=== PATIENT | female | born 1925 | race Caucasian/White ===

== ENCOUNTER 2017-07-05 23:51 | Inpatient (IN) | payer MEDICARE, OTHER ==
[~2017-07-05] VITALS: Ht 154.9 cm; Wt 77.5 kg
[2017-07-06] VITALS (11 sets, daily range): BP systolic 117–221; BP diastolic 62–123; PULSE 66–87; RESP 14–20; TEMP 95.9–98.1; O2SAT 95–100
[2017-07-06] MEDS ORDERED: traMADol HCL 50 MG TAB PO ONE ×2 (00:30→00:45)
[2017-07-06] MEDS ORDERED: LABETALOL HCL 100 MG/20 ML VIAL IV PUSH ONE (00:30)
[2017-07-06] MEDS ORDERED: HYDROmorphone HCL PF 4 MG/ML VIAL IV PUSH ONE (00:30)
[2017-07-06] MEDS ORDERED: TRAM50TA PO (00:32)
[2017-07-06] MEDS ORDERED: METO50TA PO (00:32)
[2017-07-06] MEDS ORDERED: LEVO.1 PO (00:32)
[2017-07-06] MEDS ORDERED: ONDANSETRON HCL 4 MG/2 ML VIAL IVP PRN (00:45)
[2017-07-06] MEDS ORDERED: SODIUM CHLORIDE 0.9% FLUSH 10 ML FLUSH IV FLUSH PRN (00:45)
[2017-07-06] MEDS ORDERED: ACETAMINOPHEN 325 MG TAB PO PRN (00:45)
[2017-07-06] MEDS ORDERED: NALOXONE HCL 0.4 MG/ML AMP IV PUSH PRN (00:45)
[2017-07-06] MEDS: AMPICILLIN-SULBACTAM INJ 3 GM in SODIUM CHLORIDE 0.9% INJ 100 ML IV SCH ×4 (00:56→20:04)
[2017-07-06] MEDS: PANTOPRAZOLE SODIUM 40 MG VIAL IV PUSH SCH (00:57)
[2017-07-06] MEDS: SODIUM CHLOR 0.9% 1000 ML INJ 1,000 ML IV SCH ×4 (01:40→17:59)
[2017-07-06] MEDS ORDERED: SODIUM CHLORID 0.9% 500 ML INJ 500 ML IV PRN (02:30)
[2017-07-06] MEDS ORDERED: POVIDONE IODINE 5% (ANTISEPSIS KIT) 4 APPLICATIONS EACH NARE PRN ×2 (02:30→16:30)
[2017-07-06] MEDS ORDERED: CHLORHEXIDINE GLUCONATE 2 % 1 PACK (2 CLOTHS) TOPICAL PRN ×2 (02:30→16:30)
--- NOTE | 2017-07-06 02:47 | HHI.HP ---
[facility] [place] Primary [place] Physician Zee James DO Admission Diagnosis Diagnoses: Travel History International Travel<30 Days: No Contact w/Intl Traveler <30 Da: No Traveled to Known Affected Are: No History of Present Illness 89-year-old female with a past medical history significant for atrial fibrillation (not currently on anticoagulation) and hypothyroidism presents to the emergency department status post fall. The patient was on her way back from the bathroom at 8:30 this morning when she suffered a fall into the shower. She reports that she banged the left side of her head on the tile shower, where she remained until 4:00 in the afternoon. She was initially evaluated at [facility] where she was found to have an open globe injury to the left eye. She was transferred at the request of Dr. Choudhary, ophthalmology, for further evaluation and treatment. The patient denies any other injuries although does have bruising in her bilateral upper and lower extremities. She does not have any open wounds. She denies chest pain/ shortness of breath. Denies loss of consciousness associated with the fall. Denies nausea/vomiting/diarrhea. Review of Systems Except as stated in HPI: all other systems reviewed are Neg Past Family Social History Past Medical History Atrial fibrillation (not on anticoagulation) Hypothyroidism Past Surgical History Left femur fracture repair Left hip replacement Thyroidectomy Cholecystectomy Hysterectomy Tonsillectomy Reported Medications Reported Meds & Active Scripts Active Reported Tramadol (Tramadol HCl) 50 Mg Tab 50 Mg PO Q8H PRN Metoprolol Tartrate 50 Mg Tab 50 Mg PO DAILY Synthroid (Levothyroxine Sodium) 100 Mcg Tab 100 Mcg PO DAILY Allergies: Coded Allergies: morphine (Unverified Allergy, Severe, NAUSEA & VOMITING, 12/27/16) codeine (Verified Allergy, Unknown, 07/06/17) Family History Negative for CAD/DM Social History Occasional alcohol. Denies tobacco or illicit drugs. Physical Exam Vital Signs Vital Signs Date Time Temp Pulse Resp B/P (MAP) Pulse Ox O2 Delivery O2 Flow Rate FiO2 07/06/17 00:42 68 20 205/123 (150) 99 Nasal Cannula 07/06/17 00:13 98.1 79 18 221/97 (960) 99 Physical Exam GENERAL: female lying in bed with multiple ecchymoses over bilateral upper and lower extremities SKIN: Cool and dry. HEAD: Atraumatic. Normocephalic. No temporal or scalp tenderness. EYES: Left eye with surrounding ecchymoses and swelling. Left pupil nonreactive. ENT: Nose without bleeding, purulent drainage or septal hematoma. Throat without erythema, tonsillar hypertrophy or exudate. Uvula midline. Airway patent. NECK: Trachea midline. No JVD or lymphadenopathy. Supple, nontender, no meningeal signs. CARDIOVASCULAR: Regular rate and rhythm without murmurs, gallops, or rubs. RESPIRATORY: Clear to auscultation. Breath sounds equal bilaterally. No wheezes , rales, or rhonchi. GASTROINTESTINAL: Abdomen soft, non-tender, nondistended. No hepato-splenomegaly , or palpable masses. No guarding. MUSCULOSKELETAL: Extremities without clubbing, cyanosis, or edema. No joint tenderness, effusion, or edema noted. No calf tenderness. NEUROLOGICAL: Awake and alert. Cranial nerves II through XII intact. Motor and sensory grossly within normal limits. Five out of 5 muscle strength in all muscle groups. Normal speech. Caprini VTE Risk Assessment Caprini VTE Risk Assessment: Mod/High Risk (score >= 2) Caprini Risk Assessment Model Point Value = 1 Point Value = 2 Point Value = 3 Point Value = 5 Age 41-60 Minor surgery BMI > 25 kg/m2 Swollen legs Varicose veins or History of unexplained or recurrent spontaneous Oral contraceptives or hormone replacement Sepsis (< 1 month) Serious lung disease, including pneumonia (< 1 month) Abnormal pulmonary function Acute myocardial infarction Congestive heart failure (< 1 month) History of inflammatory bowel disease Medical patient at bed rest Age 61-74 Arthroscopic surgery Major open surgery (> 45 min) Laparoscopic surgery (> 45 min) Malignancy Confined to bed (> 72 hours) Immobilizing plaster cast Central venous access Age >= 75 History of VTE Family history of VTE Factor V Leiden Prothrombin [id number] Lupus anticoagulant Anticardiolipin antibodies Elevated serum homocysteine Heparin-induced thrombocytopenia Other congenital or acquired thrombophilia Stroke (< 1 month) Elective arthroplasty Hip, pelvis, or leg fracture Acute spinal cord injury (< 1 month) Prophylaxis Regimen Total Risk Factor Score Risk Level Prophylaxis Regimen 0-1 Low Early ambulation 2 Moderate Order ONE of the following: *Sequential Compression Device (SCD) *Heparin 5000 units SQ BID 3-4 Higher Order ONE of the following medications: *Heparin 5000 units SQ TID *Enoxaparin/Lovenox 40 mg SQ daily (WT < 150 kg, CrCl > 30 mL/min) *Enoxaparin/Lovenox 30 mg SQ daily (WT < 150 kg, CrCl > 10-29 mL/min) *Enoxaparin/Lovenox 30 mg SQ BID (WT < 150 kg, CrCl > 30 mL/min) AND/OR *Sequential Compression Device (SCD) 5 or more Highest Order ONE of the following medications: *Heparin 5000 units SQ TID (Preferred with Epidurals) *Enoxaparin/Lovenox 40 mg SQ daily (WT < 150 kg, CrCl > 30 mL/min) *Enoxaparin/Lovenox 30 mg SQ daily (WT < 150 kg, CrCl > 10-29 mL/min) *Enoxaparin/Lovenox 30 mg SQ BID (WT < 150 kg, CrCl > 30 mL/min) AND *Sequential Compression Device (SCD) Assessment and Plan Assessment and Plan Assessment/plan: 1. Open globe injury to the left eye Ophthalmology consulted, plan for operative intervention Patient unable to take any narcotics except tramadol, tramadol for pain Nothing by mouth 2. Rhabdomyolysis Total creatinine kinase 06/20/06 IV fluid hydration Creatinine 0.69 Monitor renal function 3. Atrial fibrillation Continue home metoprolol 4. Hypothyroidism Continue home Synthroid FEN Nothing by mouth NS at 150 cc/hour Electrolytes: Monitor and replete when necessary Holding pharmacologic anticoagulation in anticipation of operative intervention Physician Certification 2 Midnight Certification Type: Admission for Inpatient Services Order for Inpatient Services The services are ordered in accordance with Medicare regulations or non- Medicare payer requirements, as applicable. In the case of services not specified as inpatient-only, they are appropriately provided as inpatient services in accordance with the 2-midnight benchmark. Estimated LOS (days): 2 2 days is the estimated time the patient will need to remain in the hospital, assuming treatment plan goals are met and no additional complications. Post-Hospital Plan: Not yet determined Zuleika Contreras MD Jul 06, 2017 02:47
[2017-07-06] MEDS: LEVOTHYROXINE SODIUM 100 MCG TAB PO SCH (06:26)
--- NOTE | 2017-07-06 08:46 | PD.CONS ---
History of Present Illness Service Ophthalmology Consult Requested By Reason for Consult ruptured globe left eye Primary Care Physician Zee James DO Diagnoses: History of Present Illness 89 yo F with a h/o AFib and hypothyroidism transferred from [facility]. The patient was on her way back from the bathroom at 8:30 yesterday morning when she suffered a fall into the shower. She reports that she banged the left side of her head on the tile shower, where she remained until 4:00 in the afternoon. She was evaluated at [facility] by Dr. Eduar Ye (ethylene compressor operator) where she was found to have a left orbital fracture and possible open globe injury to the left eye. She was transferred here for further evaluation and treatment. Patient states she is comfortable, but does have loss of vision in her left eye. She has an ocular history of cataract surgery in both eyes, and glaucoma surgery in her left eye. Past Family Social History Allergies: Coded Allergies: morphine (Unverified Allergy, Severe, NAUSEA & VOMITING, 12/27/16) codeine (Verified Allergy, Unknown, 07/06/17) Physical Exam Vital Signs Vital Signs Date Time Temp Pulse Resp B/P (MAP) Pulse Ox O2 Delivery O2 Flow Rate FiO2 07/06/17 06:26 71 16 166/70 (102) 97 Nasal Cannula 2.00 07/06/17 04:35 66 16 170/75 (106) 98 Nasal Cannula 2.00 07/06/17 02:00 70 18 140/75 (96) 98 Nasal Cannula 2.00 07/06/17 01:00 75 18 133/62 (85) 99 Nasal Cannula 2.00 07/06/17 00:42 68 20 205/123 (150) 99 Nasal Cannula 07/06/17 00:13 98.1 79 18 221/97 (138) 99 Physical Exam Va cc at near OD 20/20, OS LP EOM full OU, no diplopia CVF full OD, unable OS Pupils 2-1 OD, unable OS IOP deferred Anterior exam OD - normal eyelid, C/S W&Q, K clear, AC deep, pupil round, PCIOL OS - normal eyelid, conj injection, 8 ball hyphema, shallow AC, trab superior with herniation of uveal tissue Laboratory Laboratory Tests Test 07/06/17 04:47 Total Creatine Kinase 2305 Creatine Kinase MB 29.0 Creatine Kinase MB % 1.3 Assessment and Plan Problem List: (1) 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 NPO. IV Vanc/Ancef - has been open for 24+ hours. Scheduled for OR at 4pm. Tatiana Choudhary MD Jul 06, 2017 08:46
[2017-07-06] MEDS: SODIUM CHLORIDE 0.9% FLUSH 10 ML FLUSH IV FLUSH SCH ×2 (08:59→20:05)
[2017-07-06] MEDS: METOPROLOL TARTRATE 50 MG TAB PO SCH (09:26)
[2017-07-06] MEDS: traMADol HCL 50 MG TAB PO PRN (10:30)
[2017-07-06] MEDS ORDERED: PROPOFOL 200 MG/20 ML AMP IV ONE (12:00)
[2017-07-06] MEDS ORDERED: ceFAZolin INJ 1,000 MG VIAL IV ONE ×2 (12:00→16:58)
[2017-07-06] MEDS ORDERED: DEXAMETHASONE SOD PHOS 4 MG/ML VIAL IV ONE (12:00)
[2017-07-06] MEDS ORDERED: ONDANSETRON HCL 4 MG/2 ML VIAL IV ONE (12:00)
[2017-07-06] MEDS ORDERED: PHENYLEPH/NS 1000 MCG/10 ML SYR IV ONE (12:00)
[2017-07-06] MEDS ORDERED: LIDOCAINE HCL 1% PF 5 ML SYRINGE OTHER ONE (12:00)
[2017-07-06] MEDS ORDERED: LACTATED RINGER'S 1000 ML INJ 1,000 ML IV ONE (12:00)
[2017-07-06] MEDS ORDERED: ROCURONIUM INJ 50 MG/5 ML SYRINGE IV PUSH ONE (12:00)
[2017-07-06] MEDS ORDERED: BALANCED SALT SOLN OPHT IRRIG 15 ML BTL ONE (15:18)
[2017-07-06] MEDS ORDERED: methylPREDNISolone SOD SUCC 40 MG/1 ML VIAL ONE (15:24)
[2017-07-06] MEDS ORDERED: GENTAMICIN SULFATE 80 MG/2 ML VIAL ONE (15:25)
[2017-07-06] MEDS ORDERED: VANCOMYCIN 500 MG VIAL ONE (15:25)
[2017-07-06] MEDS ORDERED: ACETAMINOPHEN 1000 MG/100 ML 100 ML IV ONE (15:36)
[2017-07-06] MEDS ORDERED: INSULIN HUMAN REGULAR 1,000 UNITS/10 ML VIAL SQ PRN (16:30)
[2017-07-06] MEDS ORDERED: METOPROLOL TARTRATE 25 MG TAB PO PRN (16:30)
[2017-07-06] MEDS ORDERED: SODIUM CHLORID 0.9% 500 ML IV PRN (16:30)
[2017-07-06] MEDS ORDERED: LACTATED RINGER'S 1000 ML IV PRN (16:30)
[2017-07-06] MEDS ORDERED: TOBRAMYCIN/DEXAMETHASONE OPTH OINT 3.5 GM TUBE ONE (17:05)
[2017-07-06] MEDS ORDERED: SUGAMMADEX SODIUM 200 MG/2 ML VIAL IV PUSH ONE (17:27)
[2017-07-06] MEDS ORDERED: *ENALAPRILAT 1.25 MG/ML VIAL PERIprocedural Use ONLY ONE (18:04)
--- NOTE | 2017-07-06 18:14 | PD.OP ---
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 She was prepped and draped in the usual sterile fashion for ophthalmic surgery. A wire lid speculum was placed in the left eye. A conjunctival peritomy was performed superiorly and a 6mm scleral rupture was found with prolapsed uveal tissue. The prolapsed tissue was placed back into the eye. 7-0 Vicryl sutures were placed to close the rupture. Ocucoat was placed in the eye to reform it and the incision was found to be watertight. The conjunctiva was closed with 7-0 Vicryl. Subconjunctival Gentamycin and Decadron were injected. Tobradex ointment , a patch, and shield were placed on the left eye. The patient was sent to PACU in stable condition. Tatiana Choudhary MD Jul 06, 2017 18:14
[2017-07-06] MEDS ORDERED: DO NOT ADM ANY ANTICOAGULANT DRUGS PRN (18:45)
--- NOTE | 2017-07-06 19:55 | EKG ---
Date Performed: 07/06/2017 Time Performed: 03:03:00 PTAGE: 89 years EKG: ATRIAL FIBRILLATION MARKED LEFT AXIS DEVIATION RIGHT BUNDLE BRANCH BLOCK When compared to p revious tracing, patient is now in atrial Fibrillation. ABNORMAL ECG PREVIOUS TRACING : 08/04/2004 11.00 DOCTOR: Natalie Yee Interpretating Date/Time 07/06/2017 19:54:15
[2017-07-07] VITALS (9 sets, daily range): BP systolic 127–173; BP diastolic 59–86; PULSE 61–86; RESP 15–19; TEMP 95.6–97.6; O2SAT 94–97
[2017-07-07] MEDS: PANTOPRAZOLE SODIUM 40 MG VIAL IV PUSH SCH (00:27)
[2017-07-07] MEDS: SODIUM CHLOR 0.9% 1000 ML INJ 1,000 ML IV SCH ×4 (00:27→22:40)
[2017-07-07] MEDS: AMPICILLIN-SULBACTAM INJ 3 GM in SODIUM CHLORIDE 0.9% INJ 100 ML IV SCH ×4 (00:27→19:29)
[2017-07-07] MEDS: traMADol HCL 50 MG TAB PO PRN ×2 (00:28→12:05)
[2017-07-07] MEDS: LEVOTHYROXINE SODIUM 100 MCG TAB PO SCH (05:17)
[2017-07-07 06:11] LABS: AUTOMATED NEUTROPHIL # 7.2 TH/MM3 (1.8-7.7); BASOPHIL % 0.1 % (0.0-2.0); HEMATOCRIT 36.9 % (35.0-46.0); HEMOGLOBIN 12.8 GM/DL (11.6-15.3); LYMPH % 9.7 % (9.0-44.0); LYMPHOCYTE # 0.8 TH/MM3 (1.0-4.8); MEAN CELL VOLUME 92.3 FL (80.0-100.0); MEAN CORPUSCULAR HGB CONC 34.7 % (32.0-36.0); MEAN PLATELET VOLUME 8.8 FL (7.0-11.0); MONO % 2.1 % (0.0-8.0); MONOCYTE # 0.2 TH/MM3 (0-0.9); NEUT % 88.1 % (16.0-70.0); PLATELET COUNT 198 TH/MM3 (150-450); RED BLOOD COUNT 3.99 MIL/MM3 (4.00-5.30); RED CELL DISTRIBUTION WIDTH 14.7 % (11.6-17.2); WHITE BLOOD COUNT 8.1 TH/MM3 (4.0-11.0)
[2017-07-07] MEDS: SODIUM CHLORIDE 0.9% FLUSH 10 ML FLUSH IV FLUSH SCH (09:00)
[2017-07-07] MEDS: METOPROLOL TARTRATE 50 MG TAB PO SCH (09:52)
[2017-07-07 12:03] LABS: ALBUMIN 2.6 GM/DL (3.4-5.0); ALT (GPT) 32 U/L (10-53); AST (GOT) 78 U/L (15-37); BICARBONATE 22.5 MEQ/L (21.0-32.0); BLOOD UREA NITROGEN 20 MG/DL (7-18); CALCIUM 7.7 MG/DL (8.5-10.1); CHLORIDE 109 MEQ/L (98-107); GLOMERULAR FILTRATION RATE 79 ML/MIN (>89); GLUCOSE,RANDOM 110 MG/DL (74-106); SODIUM (NA) 140 MEQ/L (136-145)
[2017-07-07 12:16] LABS: ALKALINE PHOSPHATASE 72 U/L (45-117); TOTAL BILIRUBIN ADULT 0.5 MG/DL (0.2-1.0); TOTAL PROTEIN 6.5 GM/DL (6.4-8.2)
--- NOTE | 2017-07-07 12:21 | HHI.PR ---
Subjective Remarks 1 day s/p ruptured globe repair OS. Pt states she has mild scratchiness under her eye patch, but no pain overnight. Objective Vital Signs Date Time Temp Pulse Resp B/P (MAP) Pulse Ox O2 Delivery O2 Flow Rate FiO2 07/07/17 11:27 95.6 70 19 149/71 (97) 97 07/07/17 10:26 97 07/07/17 07:48 95.9 85 19 154/86 (108) 97 07/07/17 04:00 96.1 86 15 151/78 (102) 95 07/07/17 00:00 97.6 78 15 173/86 (115) 96 07/06/17 20:00 95.9 66 14 117/68 (84) 100 07/06/17 19:03 95 21 07/06/17 18:53 Room Air 07/06/17 18:15 73 20 177/73 (107) 95 Room Air 07/06/17 18:00 74 20 191/84 (119) 100 Nasal Cannula 2 07/06/17 17:52 74 20 178/77 (110) 100 Nasal Cannula 2 07/06/17 17:50 98.2 74 20 193/89 (123) 100 Nasal Cannula 2 I/O 07/06/17 07/06/17 07/06/17 07/07/17 07/07/17 07/07/17 07:00 15:00 23:00 07:00 15:00 23:00 Intake Total 100 ml 1100 ml 900 ml 1610 ml Output Total 1200 ml Balance 100 ml 1100 ml -300 ml 1610 ml Intake Oral 400 ml IV Total 100 ml 1100 ml 500 ml 1610 ml Output Urine Total 1200 ml Estimated Blood Loss 0 ml # Voids 1 1 # Bowel Movements 1 Result Diagram: 07/07/17 0515 07/07/17 1055 Objective Remarks Va cc at near OD 20/40, OS LP EOM full OU, no diplopia CVF full OD, unable OS Pupils 2-1 OD, no view OS IOP 19mm OS Anterior exam OD - normal eyelid, C/S W&Q, K clear, AC deep, pupil round, lens clear OS - eyelid ecchymoses, conj injection sutures intact, K clear, AC deep, hyphema , no view of lens Assessment and Plan Problem List: (1) 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 IV Vanc/Ancef. Eye shield removed today. Ok to be discharged from Ophthalmology standpoint. Discharge on Augmentin 875 BID x 7 days, Vigamox eyedrops 1 drop QID OS, Prednisolone eyedrops 1% 1 drop QID OS. Follow up next week as outpatient - call to make appt ([phone]). Tatiana Choudhary MD Jul 07, 2017 12:21
[2017-07-07] MEDS: MOXIFLOXACIN 0.5% OPHT SOLN 3 ML BTL LEFT EYE SCH ×3 (14:18→22:39)
[2017-07-07] MEDS: prednisoLONE ACETATE 1% OPHT SUSP 5 ML BTL LEFT EYE SCH ×3 (14:20→22:39)
--- NOTE | 2017-07-07 15:16 | RADRPT ---
EXAM DATE/TIME: 07/07/2017 13:42 [facility] COMPARISON: No previous studies available for comparison. INDICATIONS : Pain. Fall. MEDICAL HISTORY : None. SURGICAL HISTORY : None. ENCOUNTER: Initial ACUITY: 2 days PAIN SCORE: 10/10 LOCATION: Left Hand. FINDINGS: There is mild arthritic change of the hand and the wrist, most significantly involving the distal int erphalangeal joints. Mineralization is normal. There is no evidence of fracture, dislocation or bony destruction. CONCLUSION: Mild arthritic changes. No acute bony injury. Mook Hamilton MD on July 07, 2017 at 15:13 Board Certified Radiologist. This report was verified electronically.
--- NOTE | 2017-07-07 15:18 | RADRPT ---
EXAM DATE/TIME: 07/07/2017 13:46 [facility] COMPARISON: No previous studies available for comparison. INDICATIONS : Pain. Fall. MEDICAL HISTORY : None. SURGICAL HISTORY : None. ENCOUNTER: Initial ACUITY: 2 days PAIN SCORE: 10/10 LOCATION: Right Hand FINDINGS: Moderately prominent degenerative changes are present, distal predominant. There is no evidence of fr acture or dislocation. CONCLUSION: Degenerative changes. No acute bony injury Mook Hamilton MD on July 07, 2017 at 15:14 Board Certified Radiologist. This report was verified electronically.
--- NOTE | 2017-07-07 15:55 | PD.WCN.NOT ---
Wound Consult Description: Received consult for evaluation of pressure ulcer of R toe MTP. R MTP, pressure ulcer from lying on floor at home from Doctor Joshua. Communicated with: RN Mamie workman and Doctor Joshua Recommendation: 1.Please leave all resolving scabs and abrasions open to air. May apply skin prep to resolving abrasion to R medial metatarsal head BID and PRN and leave open to air. 2.Please float bilateral heels off mattress 3. Encourage patient to turn self in bed to offload pressure from buttock area. Additional Information: Patient seen on [facility] for evaluation of pressure ulcer to R toe MTP pressure ulcer from lying on floor at home. Patient is laying in bed with her two daughters at the bedside. Patient noted with diffuse generalized bruising and scabs. Patient states," I fell at home." Assessed patient's bilateral feet patient noted with abrasion to R medial metatarsal head that measures ~2cm x ~ 2cm. Wound is dry and and noted with partial scab. Applied skin prep to R medial metatarsal head abrasion and left open to air. Patient has prominent gavin prominence on R foot. Heels were floated on two pillows. Stephanie Dior [facility] Jul 07, 2017 15:55
--- NOTE | 2017-07-07 23:59 | HHI.PR ---
Subjective Remarks from yesterday: Objective Vital Signs Date Time Temp Pulse Resp B/P (MAP) Pulse Ox O2 Delivery O2 Flow Rate FiO2 07/07/17 19:08 Room Air 07/07/17 17:47 94 21 07/07/17 15:38 95.9 61 19 140/59 (86) 94 07/07/17 11:27 95.6 70 19 149/71 (97) 97 07/07/17 10:26 97 07/07/17 07:52 77 07/07/17 07:48 95.9 85 19 154/86 (108) 97 07/07/17 04:00 96.1 86 15 151/78 (102) 95 07/07/17 00:00 97.6 78 15 173/86 (115) 96 I/O 07/07/17 07/07/17 07/07/17 07/08/17 07/08/17 07/08/17 07:00 15:00 23:00 07:00 15:00 23:00 Intake Total 1610 ml 400 ml Balance 1610 ml 400 ml Intake Oral 400 ml IV Total 1610 ml # Voids 1 4 3 # Bowel Movements 1 1 Result Diagram: 07/07/17 0515 07/07/17 1055 Dmitri Lewis MD Jul 07, 2017 23:59
[2017-07-08 00:05] VITALS: BP 157/76; PULSE 68; RESP 17; TEMP 96.9; O2SAT 100
[2017-07-08] MEDS: PANTOPRAZOLE SODIUM 40 MG VIAL IV PUSH SCH (00:10)
[2017-07-08] MEDS: traMADol HCL 50 MG TAB PO PRN (00:10)
[2017-07-08] MEDS: AMPICILLIN-SULBACTAM INJ 3 GM in SODIUM CHLORIDE 0.9% INJ 100 ML IV SCH ×2 (00:10→06:26)
--- NOTE | 2017-07-08 02:28 | HHI.PR ---
Subjective Remarks Patient seen this morning around 10 AM. She reports pain is under control. Denies any chest pain or shortness of breath. She says she feels like going home, however has some difficulty getting around. She adamantly denies that fall was anything other than a mechanical fall. She reports regarding bilateral hands during fall. Objective Vital Signs Date Time Temp Pulse Resp B/P (MAP) Pulse Ox O2 Delivery O2 Flow Rate FiO2 07/08/17 00:05 96.9 68 17 157/76 (103) 100 07/07/17 20:10 96.8 70 18 127/66 (86) 97 07/07/17 19:08 Room Air 07/07/17 17:47 94 21 07/07/17 15:38 95.9 61 19 140/59 (86) 94 07/07/17 11:27 95.6 70 19 149/71 (97) 97 07/07/17 10:26 97 07/07/17 07:52 77 07/07/17 07:48 95.9 85 19 154/86 (108) 97 07/07/17 04:00 96.1 86 15 151/78 (102) 95 I/O 07/07/17 07/07/17 07/07/17 07/08/17 07/08/17 07/08/17 07:00 15:00 23:00 07:00 15:00 23:00 Intake Total 1610 ml 400 ml 240 ml Balance 1610 ml 400 ml 240 ml Intake Oral 400 ml 240 ml IV Total 1610 ml # Voids 1 4 4 # Bowel Movements 1 1 0 Result Diagram: 07/07/17 0515 07/07/17 1055 Objective Remarks GENERAL: patient lying in bed. Appears comfortable. Left globe status post surgery SKIN: Warm and dry. HEAD: Normocephalic. EYES: No scleral icterus. No injection or drainage. NECK: Supple, trachea midline. No JVD or lymphadenopathy. CARDIOVASCULAR: Regular rate and rhythm without murmurs, gallops, or rubs. RESPIRATORY: Breath sounds equal bilaterally. No accessory muscle use. GASTROINTESTINAL: Abdomen soft, non-tender, nondistended. MUSCULOSKELETAL: No cyanosis, or edema. BACK: Nontender without obvious deformity. No CVA tenderness. A/P Assessment and Plan //Open globe injury to the left eye Ophthalmology consulted, plan for operative intervention Patient unable to take any narcotics except tramadol, tramadol for pain Nothing by mouth = Patient cleared for discharge by ophthalmology. Still weak and with rhabdomyolysis. //Rhabdomyolysis Total creatinine kinase 2226 IV fluid hydration Creatinine 0.69 Monitor renal function = 07/07 creatinine improving 1118. Continue IV fluids. Continue to monitor. //Atrial fibrillation Continue home metoprolol //Hypothyroidism Continue home Synthroid //Bilateral hand pain following fall. Bilateral hand x-rays with chronic osteoarthritic changes. Likely pain is from gilling phenomenon from this.. FEN Nothing by mouth NS at 75 cc/hour Electrolytes: Monitor and replete when necessary Holding pharmacologic anticoagulation in anticipation of operative intervention Discharge Planning . Cleared by ophthalmology. We'll need improvedcreatine kinase Dmitri Lewis MD Jul 08, 2017 02:28
[2017-07-08 03:40] VITALS: BP 148/69; PULSE 78; RESP 18; TEMP 96.8; O2SAT 96
[2017-07-08] MEDS: LEVOTHYROXINE SODIUM 100 MCG TAB PO SCH (06:25)
[2017-07-08] MEDS: SODIUM CHLORIDE 0.9% FLUSH 10 ML FLUSH IV FLUSH SCH ×2 (06:25→09:00)
[2017-07-08] MEDS: SODIUM CHLOR 0.9% 1000 ML INJ 1,000 ML IV SCH (06:28)
[2017-07-08 07:07] LABS: AUTOMATED NEUTROPHIL # 9.2 TH/MM3 (1.8-7.7); BASOPHIL % 0.1 % (0.0-2.0); EOSINOPHIL % 0.1 % (0.0-4.0); HEMATOCRIT 36.1 % (35.0-46.0); HEMOGLOBIN 12.2 GM/DL (11.6-15.3); LYMPH % 11.5 % (9.0-44.0); LYMPHOCYTE # 1.3 TH/MM3 (1.0-4.8); MEAN CORPUSCULAR HEMOGLOBIN 31.4 PG (27.0-34.0); MEAN CORPUSCULAR HGB CONC 33.8 % (32.0-36.0); MEAN PLATELET VOLUME 8.8 FL (7.0-11.0); MONO % 7.7 % (0.0-8.0); MONOCYTE # 0.9 TH/MM3 (0-0.9); NEUT % 80.6 % (16.0-70.0); PLATELET COUNT 213 TH/MM3 (150-450); RED BLOOD COUNT 3.88 MIL/MM3 (4.00-5.30); RED CELL DISTRIBUTION WIDTH 14.9 % (11.6-17.2); WHITE BLOOD COUNT 11.4 TH/MM3 (4.0-11.0)
[2017-07-08 07:25] LABS: BICARBONATE 25.7 MEQ/L (21.0-32.0); CALCIUM 7.8 MG/DL (8.5-10.1); CREATININE 0.78 MG/DL (0.50-1.00)
[2017-07-08] MEDS ORDERED: WALKER WHEELS/F1 MIS (07:51)
[2017-07-08 08:00] VITALS: BP 128/71; PULSE 94; RESP 18; TEMP 97.2; O2SAT 97
--- NOTE | 2017-07-08 08:12 | HHI.PR ---
Subjective Remarks wake and alert no complains of body or muscle aches no headaches ambulating - slightly tentative Objective Vitals Vital Signs Date Time Temp Pulse Resp B/P (MAP) Pulse Ox O2 Delivery O2 Flow Rate FiO2 07/08/17 03:40 96.8 78 18 148/69 (95) 96 07/08/17 00:05 96.9 68 17 157/76 (103) 100 07/07/17 20:10 96.8 70 18 127/66 (86) 97 07/07/17 19:08 Room Air 07/07/17 17:47 94 21 07/07/17 15:38 95.9 61 19 140/59 (86) 94 07/07/17 11:27 95.6 70 19 149/71 (97) 97 07/07/17 10:26 97 I/O 07/07/17 07/07/17 07/07/17 07/08/17 07/08/17 07/08/17 07:00 15:00 23:00 07:00 15:00 23:00 Intake Total 1610 ml 400 ml 240 ml 340 ml Balance 1610 ml 400 ml 240 ml 340 ml Intake Oral 400 ml 240 ml 240 ml IV Total 1610 ml 100 ml # Voids 1 4 4 2 # Bowel Movements 1 1 0 1 Result Diagram: 07/08/17 0525 07/08/17 0525 Imaging Last Impressions Hand X-Ray 07/07/17 0000 Signed Impressions: Service Date/Time: Friday, July 07, 2017 13:42 - CONCLUSION: Mild arthritic changes. No acute bony injury. Mook Hamilton MD Objective Remarks awake and alert, oriented x 3 anicteric left periorbital mild swelling and ecchymoses, injected left conjunctivae left eye vision- see some outlines, blurry, lens not visualized right pupil reactive, grossly clear (history of glaucoma on this eye) no nuchal rigidity lungs clear irregular rhythm abdomen soft, nontender both UE- good range of motion, wrists full, range of motion, good buncher operator, good pusles LE no edema, good range of motion, dry abrasion, good peripheral pulses Procedures s/p repair of left ruptured eye globe A/P Assessment and Plan 89 years old female //Open globe injury to the left eye S/P repair of ruptured globe left eye - tramadol prn for pain - continue eye drops- vigamox + Prenisolone -augmentin 875 mg po bid - PT //Rhabdomyolysis - CK trending down markedly - non oliguric- good urine output - encourage po fluids - PT //Atrial fibrillation- rate controlled Continue home metoprolol //Hypothyroidism Continue home Synthroid //Bilateral hand pain following fall. Bilateral hand x-rays with chronic osteoarthritic changes. - good range of motion - PT HOme today - patient prefers to go home with home PT - lives with daughter OP ff up with PCP- Monday with repeat CK OP ff up with - Opthalmology - Dr. Choudhary in 1 week CM consult for home PT and DME needs arrangements discuss with her caution with ambulation, specially with steps, no driving Angelia Swann MD Jul 08, 2017 08:12
[2017-07-08] MEDS ORDERED: AMOX875T2 PO (08:17)
[2017-07-08] MEDS ORDERED: PRED1SUS6 LEFT EYE (08:17)
[2017-07-08] MEDS ORDERED: VIGA0.5D LEFT EYE (08:17)
--- NOTE | 2017-07-08 08:23 | HHI.DS ---
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 The patient was on her way back from the bathroom at 8:30 this morning when she suffered a fall into the shower. She reports that she banged the left side of her head on the tile shower, where she remained until 4:00 in the afternoon. She was initially evaluated at [facility] where she was found to have an open globe injury to the left eye. She was transferred at the request of Dr. Choudhary, ophthalmology, for further evaluation and treatment. The patient denies any other injuries although does have bruising in her bilateral upper and lower extremities. She does not have any open wounds. She denies chest pain/ shortness of breath. Denies loss of consciousness associated with the fall. Denies nausea/vomiting/diarrhea. CBC/BMP: 07/08/17 0525 07/08/17 0525 Significant Findings Laboratory Tests Test 07/06/17 04:47 07/06/17 10:26 07/07/17 05:15 07/07/17 10:55 Total Creatine Kinase 2305 U/L (26-192) 2226 U/L (26-192) 1118 U/L (26-192) Creatine Kinase MB 29.0 NG/ML (0.5-3.6) 26.3 NG/ML (0.5-3.6) 8.2 NG/ML (0.5-3.6) Red Blood Count 3.99 MIL/MM3 (4.00-5.30) Neutrophils (%) (Auto) 88.1 % (16.0-70.0) Lymphocytes # (Auto) 0.8 TH/MM3 (1.0-4.8) Blood Urea Nitrogen 20 MG/DL (7-18) Random Glucose 110 MG/DL (74-106) Albumin 2.6 GM/DL (3.4-5.0) Calcium Level 7.7 MG/DL (8.5-10.1) Aspartate Amino Transf (AST/SGOT) 78 U/L (15-37) Chloride Level 109 MEQ/L (98-107) Estimat Glomerular Filtration Rate 79 ML/MIN (>89) Test 07/08/17 05:25 White Blood Count 11.4 TH/MM3 (4.0-11.0) Red Blood Count 3.88 MIL/MM3 (4.00-5.30) Neutrophils (%) (Auto) 80.6 % (16.0-70.0) Neutrophils # (Auto) 9.2 TH/MM3 (1.8-7.7) Blood Urea Nitrogen 25 MG/DL (7-18) Calcium Level 7.8 MG/DL (8.5-10.1) Chloride Level 110 MEQ/L (98-107) Estimat Glomerular Filtration Rate 70 ML/MIN (>89) Total Creatine Kinase 713 U/L (26-192) Creatine Kinase MB 4.9 NG/ML (0.5-3.6) Imaging Last Impressions Hand X-Ray 07/07/17 0000 Signed Impressions: Service Date/Time: Friday, July 07, 2017 13:42 - CONCLUSION: Mild arthritic changes. No acute bony injury. 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, good pusles LE no edema, good range of motion, dry abrasion, good peripheral pulses Pt update on day of discharge awake and alert no complains of muscle aches prefers to go home with daughter - with home PT arrangement encoruage increase po fluids Pt Condition on Discharge: Stable Discharge Disposition: Disch w/ Home Health Serv Discharge Time: > 30 minutes Discharge Instructions DIET: Follow Instructions for: As Tolerated, No Restrictions Speech Therapy-Diet Recommends: Regular Activities you can perform: Weight Bearing as Edita Activities to Avoid: Lifting/Bending, Prolonged Standing, Strenuous Activity Follow up Referrals: Ophthalmology - 1 Week with Tatiana Choudhary MD PCP Follow-up - 3-5 Days with PCP New Orders: BASIC METABOLIC PROF - 07/10/17 CREATININE KINASE - 07/10/17 New Medications: Walker with Front Wheels (Walker with Front Wheels) 1 Mis Mis EA .XX DIRECTED for ambulation safet, #1 0 Refills Amoxicillin-Clavulanate (Amoxicillin-Clavulanate) 875-125 mg Tab 875 MG PO Q12HR for postop, #13 TAB not for use in CrCl <30 mL/minute Moxifloxacin Opth Drops (Vigamox Opth Drops) 0.5 % Soln 1 DROP LEFT EYE QID for globe rupture for 7 Days, #1 BOTTLE Prednisolone Acetate Opth (Prednisolone Acetate Opth) 1% Susp 1 DROP LEFT EYE QID for globe rupture for 7 Days, #1 BOTTLE 0 Refills Continued Medications: Levothyroxine (Synthroid) 100 Mcg Tab 100 MCG PO DAILY for Thyroid, #30 TAB 0 Refills Metoprolol Tartrate (Metoprolol Tartrate) 50 Mg Tab 50 MG PO DAILY, #30 TAB 0 Refills Tramadol (Tramadol) 50 Mg Tab 50 MG PO Q8H PRN for PAIN, TAB 0 Refills Angelia Swann MD Jul 08, 2017 08:23
[2017-07-08] MEDS ORDERED: AMOXICILLIN/CLAVULANATE K 875 MG TAB PO SCH (09:00)
[2017-07-08] MEDS: MOXIFLOXACIN 0.5% OPHT SOLN 3 ML BTL LEFT EYE SCH (09:49)
[2017-07-08] MEDS: METOPROLOL TARTRATE 50 MG TAB PO SCH (09:49)
[2017-07-08] MEDS: prednisoLONE ACETATE 1% OPHT SUSP 5 ML BTL LEFT EYE SCH (09:49)
--- NOTE | 2017-07-08 10:59 | HHI.FF ---
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 My clinical findings support the need for the requested home health care services because: Deconditioned w/ increased weakness Need for psychosocial assistance High risk of falls Infection w/ risk of complications I certify that my clinical findings support that this patient is homebound because: Unsteady gait/balance Angelia Swann MD Jul 08, 2017 10:59
[2017-07-08 12:00] VITALS: BP 137/87; PULSE 71; RESP 18; TEMP 96.4; O2SAT 98
== END 2017-07-08 13:14 | disposition home health service (06) | DRG 116 ==
LOC: NEPE 23:51 → NEDA 07-06 04:07 → NEDH 07-06 06:24 → N06A 07-06 18:34
PROVIDERS: ADMIT Internal Medicine; ATTEND Internal Medicine
PROC: 08Q7XZZ Repair Left Sclera, External Approach (ICD-10-PCS; principal; 2017-07-06 16:08)
DX: S05.22XA Ocular laceration and rupture with prolapse or loss of intraocular tissue, left eye, initial encounter (principal); S02.82XA Fracture of other specified skull and facial bones, left side, initial encounter for closed fracture; M62.82 Rhabdomyolysis; I48.91 Unspecified atrial fibrillation; L89.899 Pressure ulcer of other site, unspecified stage; E03.9 Hypothyroidism, unspecified; W18.2XXA Fall in (into) shower or empty bathtub, initial encounter; Y93.89 Activity, other specified; Y92.002 Bathroom of unspecified non-institutional (private) residence as the place of occurrence of the external cause; H54.62 Unqualified visual loss, left eye, normal vision right eye; M19.042 Primary osteoarthritis, left hand; M19.041 Primary osteoarthritis, right hand; Z96.642 Presence of left artificial hip joint; Z90.710 Acquired absence of both cervix and uterus
CPT/HCPCS: 73120; 76937; 80048; 80053; 82550; 82552; 84443; 85025; 93005; 96374; C9113; J0131; J0295; J0690; J1100; J1580; J2370; J2405; J2920; J3010; J3370; J7030; J7120

== ENCOUNTER → 2017-08-22 | Day surgery (SDC) | payer MEDICARE, OTHER ==
[~2017-08-22] MED LIST: ACETAMINOPHEN 325 MG TAB ONE; AMOX875T2 PO; DEXAMETHASONE SOD PHOS 4 MG/ML VIAL ONE; EPINEPHrine HCL (1:1000) 1 MG/ML VIAL ONE; LACTATED RINGER'S 1000 ML INJ 1,000 ML ONE; LEVO.1 PO; METO50TA PO; MOXIFLOXACIN 0.5% OPHT SOLN 3 ML BTL ONE; ONDANSETRON HCL 4 MG/2 ML VIAL IV PUSH ONE; PHENYLEPHRINE HCL 10% OPTH SOLN 5 ML BTL ONE; PRED1SUS6 LEFT EYE; PROPOFOL 200 MG/20 ML AMP IV ONE; SODIUM CHLORIDE 0.9% INJ 10 ML ONE; TETRACAINE 0.5% OPTH SOLN 4 ML BTL ONE; TOBRAMYCIN/DEXAMETHASONE OPTH OINT 3.5 GM TUBE ONE; TRAM50TA PO; TRIAMCINOLONE ACETONIDE 40 MG/ML VIAL ONE; VIGA0.5D LEFT EYE; WALKER WHEELS/F1 MIS; ceFAZolin INJ 1,000 MG VIAL ONE; prednisoLONE ACETATE 1% OPHT SUSP 5 ML BTL ONE
--- NOTE | 2017-08-31 12:07 | MP ---
cc: Ayden Hanson MD DATE OF OPERATION: 08/22/2017 PREOPERATIVE DIAGNOSIS: Ruptured globe, status post repair, tractional retinal detachment, dense vitreous hemorrhage, severe visual loss, left eye. POSTOPERATIVE DIAGNOSIS: Ruptured globe, status post repair, tractional retinal detachment, dense vitreous hemorrhage, severe visual loss, left eye. PROCEDURE PERFORMED: Pars plana vitrectomy, anterior chamber reconstruction, tractional retinal detachment repair, insertion of intravitreal Kenalog, right eye. COMPLICATIONS: None. ESTIMATED BLOOD LOSS: Less than 1 mL. ANESTHESIA: Dr. Ribera, general. INDICATIONS FOR PROCEDURE: This is a delightful patient who unfortunately suffered severe ocular trauma with globe rupture. The patient had her ruptured globe repaired approximately 1-1/2 months ago and elected for additional surgery to clear the dense vitreous hemorrhage, tractional complexes and any other indicated procedure. At time of presentation and prior to surgery, the posterior pole was not able to be visualized given the severe pathology and the patient could barely see light. The patient understands the risks, benefits, alternatives and very guarded prognosis. PROCEDURE NOTE: After informed consent was obtained, the patient was brought to the operating room and general anesthesia was established. The left eye was prepped and draped in sterile fashion, Betadine in the conjunctival fornix. A 3 port pars plana vitrectomy was established with a self-retaining infusion cannula. The dense fibrous tissue covering the pupil and encapsulating the intraocular lens along with hemorrhage was carefully removed with the vitrector. This allowed visualization of the vitreous cavity. The vitreous cavity was filled with dense hemorrhage and additional fibrinous material, resulting in no visualization of the retina and rectal traction. This dense material was carefully removed and from underlying retina. A skirt of vitreous along with hemorrhage had remained in the far periphery. This remaining skirt did not cause retinal traction. The retina appeared nicely attached after careful dissection, without retinal holes, tears or detachments, confirmed with scleral depressed examination. The optic nerve appeared cupped. Intravitreal Kenalog was instilled. Trocars removed and sclerotomies closed with 8-0 Vicryl suture. Conjunctiva was repaired approximately a 6-0 plain gut. Subconjunctival injection of Ancef and dexamethasone were given. The eye was patched with Tobramycin ointment. The patient was brought to recovery room in stable condition and can continue followup with [facility] for postoperative care. MD JAIRO Alan , 09:03 PM , 09:27 PM
== END | disposition home or self-care (01) ==
LOC: ESDC 07:45
PROVIDERS: ATTEND Ophthalmology
DX: H33.42 Traction detachment of retina, left eye (principal); H43.12 Vitreous hemorrhage, left eye; H54.62 Unqualified visual loss, left eye, normal vision right eye; S05.22XA Ocular laceration and rupture with prolapse or loss of intraocular tissue, left eye, initial encounter
CPT/HCPCS: 00145; 67113; J0171; J0690; J1100; J2405; J3010; J3301; J7120